=== PATIENT | female | born 1950 | race Caucasian/White ===

== ENCOUNTER 2016-08-29 11:39 | Inpatient (IN) | payer OTHER, MEDICAID ==
[2016-08-29] MEDS: NS 1000 ML 1,000 ML IV SCH (14:50)
[2016-08-29 14:53] LABS: BILIRUBIN,URINE NEGATIVE (NEGATIVE); BLOOD/HEMOGLOBIN,URINE NEGATIVE (NEGATIVE); GLUCOSE, URINE 3+ (NEGATIVE); KETONES,URINE NEGATIVE (NEGATIVE); LEUKOCYTE ESTERASE ,URINE NEGATIVE (NEGATIVE); NITRITES,URINE NEGATIVE (NEGATIVE); PROTEIN,URINE 2+ (NEGATIVE); UROBILINOGEN,URINE NORMAL (NORMAL)
[2016-08-29 14:58] VITALS: BMI 31.7
[2016-08-29 15:00] LABS: APPEARANCE,URINE CLEAR (CLEAR); COLOR,URINE YELLOW (YELLOW); RBC,URINE 0-2 /HPF (NEGATIVE)
[2016-08-29] MEDS: LEVAQUIN PREMIX IV 500 MG 500 MG/100 ML BAG IV SCH ×2 (15:00→15:16)
[2016-08-29 15:01] LABS: AMORPHOUS SEDIMENT,UR TRACE /HPF (NEGATIVE); BACTERIA,URINE 1+ /HPF (NEGATIVE); SQUAMOUS EPITHELIAL CELL,UR MANY /HPF (NEGATIVE)
[2016-08-29] MEDS: SOLU-Medrol 40 MG VIAL IVP SCH ×2 (15:16→21:15)
[2016-08-29 15:50] LABS: BASOPHILS % (AUTO) 0.7 % (0.2-1.0); EOSINOPHILS # (AUTO) 0.1 x10^3/uL (0.0-0.2); EOSINOPHILS % (AUTO) 1.8 % (0.9-2.9); HEMATOCRIT 46.1 % (36.0-47.0); HEMOGLOBIN 14.9 g/dL (12.0-16.0); LYMPHOCYTES # (AUTO) 2.2 X10^3/uL (1.3-2.9); LYMPHOCYTES % (AUTO) 37.6 % (21.0-51.0); MEAN CORPUSCULAR HEMOGLOBIN 29.5 pg (27.0-34.0); MEAN CORPUSCULAR HGB CONC 32.3 g/dL (33.0-35.0); MEAN CORPUSCULAR VOLUME 91.4 fL (80.0-100.0); MEAN PLATELET VOLUME 8.3 fL (7.4-11.0); MONOCYTES # (AUTO) 0.6 x10^3/uL (0.3-0.8); MONOCYTES % (AUTO) 9.5 % (0.0-13.0); NEUTROPHILS % (AUTO) 50.4 % (42.0-75.0); PLATELET COUNT 125 X10^3/uL (150.0-450.0); RED BLOOD COUNT 5.05 X10^6/uL (3.5-5.4); RED CELL DISTRIBUTION WIDTH 17.1 % (11.6-16.5); WHITE BLOOD COUNT 5.9 X10^3/uL (3.6-10.0)
[2016-08-29 16:02] LABS: ALANINE AMINOTRANSFERASE 41 Units/L (12-78); ALBUMIN 2.9 g/dL (3.4-5.0); ALKALINE PHOSPHATASE 126 Units/L (46-116); ASPARTATE AMINO TRANSFERASE 27 Units/L (15-37); BLOOD UREA NITROGEN 17 mg/dL (7-18); CALCIUM 8.7 mg/dL (8.5-10.1); CARBON DIOXIDE 35.8 mmol/L (21-32); CHLORIDE 105 mmol/L (98-107); COR CA(FOR HYPOALB) 9.6 mg/dL (8.5-10.1); COR NA(FOR HYPERGLY) 148 mmol/L (136-145); CREATININE 0.78 mg/dL (0.55-1.02); GLUCOSE 250 mg/dL (65-99); SODIUM 144 mmol/L (136-145); TOTAL PROTEIN 6.6 g/dL (6.4-8.2); eGFR BLACK RACES > 60 (>60); eGFR NON BLACK RACES > 60 (>60)
--- NOTE | 2016-08-29 16:52 | RAD ---
HISTORY: COPD exacerbation and bronchitis. Study: Chest one view Comparison: None. Findings: The trachea is midline. The cardiac silhouette is enlarged. There is an AICD in place. There is so me prominence of the central bronchial pulmonary markings in both lungs. There is no evidence of con solidation, significant effusion or pneumothorax. The bony thorax is unremarkable. IMPRESSION: 1. Cardiomegaly. 2. Chronic bronchitis versus reactive airway disease. Reported By:
[2016-08-29] MEDS: ZITHROMAX INJ 500 MG VIAL 500 MG in NS 250 ML IV 250 ML IV SCH (17:00)
[2016-08-29] MEDS: DUONEB 0.5 MG/3 MG NEB SCH (17:00)
[2016-08-29] MEDS: HumuLIN R SUBCUT PRN ×2 (18:03→21:21)
[2016-08-29] MEDS ORDERED: NORCO 10/325 TAB PO PRN (20:03)
[2016-08-30] MEDS ORDERED: PATIENT'S HOME MEDICATION (Alprazolam [Alprazolam] 1 TAB) PO PRN (00:31)
[2016-08-30] MEDS ORDERED: NORCO 10/325 TAB PO PRN (00:31)
[2016-08-30] MEDS ORDERED: METHOCARBAMOL PO PRN (00:31)
[2016-08-30] MEDS: COREG TAB 25 MG PO SCH ×4 (01:28→20:01)
[2016-08-30] MEDS: NS 1000 ML 1,000 ML IV SCH (03:55)
[2016-08-30] MEDS: SOLU-Medrol 40 MG VIAL IVP SCH (06:00)
[2016-08-30] MEDS ORDERED: PATIENT'S HOME MEDICATION (Dicyclomine Hcl [Dicyclomine Hcl] 1 TAB) PO SCH (06:00)
[2016-08-30] MEDS: HumuLIN R SUBCUT PRN ×4 (06:02→20:07)
[2016-08-30] MEDS: DUONEB 0.5 MG/3 MG NEB SCH ×5 (06:02→21:54)
[2016-08-30] MEDS ORDERED: BENTYL CAP 10 MG PO ONE (06:37)
[2016-08-30] MEDS ORDERED: XANAX PO PRN (06:49)
[2016-08-30] MEDS: BENTYL CAP 10 MG PO SCH ×3 (07:05→22:36)
[2016-08-30] MEDS: AMARYL TAB 4 MG PO SCH (07:19)
[2016-08-30] MEDS: NEURONTIN CAP 400 MG PO SCH ×2 (08:52→20:01)
[2016-08-30] MEDS: ARICEPT TAB 5 MG PO SCH (08:53)
[2016-08-30] MEDS: PriLOSEC PO SCH (08:53)
[2016-08-30] MEDS: SINEquan PO SCH ×3 (08:53→20:12)
[2016-08-30] MEDS: ZyrTEC TAB 10 MG PO SCH (08:53)
[2016-08-30] MEDS: NAPROSYN PO SCH ×2 (08:54→20:01)
[2016-08-30] MEDS: LEVAQUIN PREMIX IV 500 MG 500 MG/100 ML BAG IV SCH (08:55)
[2016-08-30] MEDS: ZITHROMAX INJ 500 MG VIAL 500 MG in NS 250 ML IV 250 ML IV SCH (08:56)
[2016-08-30] MEDS ORDERED: GLIMEPIRIDE PO SCH (09:00)
[2016-08-30] MEDS ORDERED: DOXEPIN HCL PO SCH (09:00)
[2016-08-30] MEDS: PATIENT'S HOME MEDICATION PO SCH (09:46)
[2016-08-30] MEDS: PLAVIX PO SCH (09:46)
--- NOTE | 2016-08-30 13:13 | DR.H&P ---
H&P - History & Physical for Day of: H&P Date: 08/29/16 - Chief Complaint Chief Complaint: cough, wheezing, left lower extremity pain - Allergies Allergies/Adverse Reactions: Allergies Allergy/AdvReac Type Severity Reaction Status Date / Time Sulfa Antibiotics AdvReac Verified 08/29/16 14:29 - History of Present Illness History of Present Illness: patient is a 66-year-old white female who was a direct admit from Dr. Patten's [place] office with COPD exacerbation. Patient had previously taken by mouth antibiotics and steroids prior to admission. Patient also had complaints of severe left knee and left hip pain. Patient states pain has gotten worse she has limited weightbearing to tolerance. Patient states she did have ultrasound at [facility] which was negative for a DVT. Plan to admit for respiratory therapy, IV antibiotics, admission labs and chest x-ray. And pain control. Plan to obtain copies of radiology reports from [facility] - Past Medical History Past Medical History: Arthritis, COPD, GERD, Hypertension - Past Surgical History Surgical History: Angioplasty/Stents, Cholecystectomy, Hysterectomy, Ortho Surgery, Tonsillectomy - Family History Family Medical History: Cancer, PA, Hypertension - Social History Does patient currently use any type of tobacco product: Yes Have you used tobacco products in the last 12 months: Yes Type of Tobacco Use: Cigarettes How many years tobacco product used: 40 Packs per day or dips/chews per day: 1 Does any household member use tobacco: No Alcohol Use: None Drug Use: None - Medications Home Medications: Alprazolam 1 tab PO BID PRN 08/29/16 [History Confirmed 08/30/16] Carvedilol [Coreg Tab 25 mg] 25 mg PO BID 08/29/16 [History Confirmed 08/30/16] Cetirizine HCl [Zyrtec Allergy] 1 tab PO DAILY 08/29/16 [History Confirmed 08/30] Clopidogrel Bisulfate [PLAVIX TAB 75 MG *] 1 tab PO DAILY 08/29/16 [History Confirmed 08/30/16] Dicyclomine HCl 1 tab PO QID 08/29/16 [History Confirmed 08/30/16] Donepezil Hydrochloride [ARICEPT TAB 5 MG *] 1 tab PO HS 08/29/16 [History Confirmed 08/30/16] Doxepin HCl 1 cap PO HS 08/29/16 [History Confirmed 08/30/16] Estradiol & Norethindrone Acet [Activella 0.5-0.1 mg] 1 tab PO DAILY 08/29/16 [ History Confirmed 08/30/16] Gabapentin 3 tab PO TID 08/29/16 [History Confirmed 08/30/16] Glimepiride [Glimepiride 2 mg] 1 tab PO DAILY 08/29/16 [History Confirmed ] Hydrocodone-Acetaminophen [Hydrocodone/Acetaminophen 10-325 mg] 1 tab PO Q4H PRN 08/29/16 [History Confirmed 08/30/16] Methocarbamol [Methocarbamol 500 mg] 2 tab PO TID 08/29/16 [History Confirmed ] Naproxen [NAPROSYN 500 MG *] 1 tab PO BID 08/29/16 [History Confirmed 08/30/16] Omeprazole [PRILOSEC 20 MG *] 2 tab PO DAILY 08/29/16 [History Confirmed ] - Review of Systems Eyes: No Symptoms Reported ENT: No Symptoms Reported Respiratory: Cough, Shortness of Breath, Wheezing Cardiovascular: No Symptoms Reported Gastrointestinal: No Symptoms Reported Genitourinary: No Symptoms Reported Musculoskeletal: Back Pain, Leg Pain Skin: No Symptoms Reported Neurological: No Symptoms Reported - Physical Exam Vital Signs: Temperature 97.9 F Pulse Rate [Right Brachial] 80 Pulse Rate 79 Respiratory Rate 18 Blood Pressure [Left Arm] 137/62 O2 Sat by Pulse Oximetry 90 Oriented: Normal Eyes: Normal Ear: Normal Nose: Normal Throat: Normal Respiratory: Wheezes Throughout Cardiovascular: Normal : Normal Auscultation: Bowel Sounds: Normal Palpation: Normal Tenderness: Normal Skin: Normal Musculoskeletal: Knee (LEFT KNEE MEDIAL AND LATERAL TENDERNESS, LIMITED ROM), Back:Thoracic, Back:Lumbar Psychiatric: Anxiety Speech Pattern: Clear, Appropriate - Assessment/Plan (1) Acute bronchitis with COPD Status: Acute Plan: ADMIT, IV ATBX, RESP THERAPY. ADMISSION LABS. RESUME HOME MEDS, BP CONTROL. BS CONTROL (2) Left knee pain Qualifiers: Chronicity: C Status: Acute Plan: PAIN CONTROL (3) Lumbar spinal stenosis Status: Acute (4) Diabetes mellitus, type II Qualifiers: Diabetes mellitus complication status: D Diabetes mellitus complication detail: D Diabetic retinopathy severity: D Proliferative retinopathy type: P Diabetes mellitus macular edema: D Diabetes mellitus skilled nursing insulin use : D Laterality: L Chronic kidney disease stage: C Status: Chronic (5) GERD (gastroesophageal reflux disease) Qualifiers: Esophagitis presence: E Status: Chronic
--- NOTE | 2016-08-30 13:22 | PCM.PROG ---
Progress Note - Progress Note for Day of Date: 08/30/16 - Subjective Subjective: CONTINUED WHEEZING, LEFT HIP AND LEFT KNEE PAIN - Past Medical Family Social History Past Med/Fam/Surg Hx: No changes since H&P Allergies: Allergies Sulfa Antibiotics Adverse Reaction (Verified 08/29/16 14:29) - Review of Systems ROS: No change since H&P - Vital Signs and I&O's Vital Signs: Temperature 97.9 F Pulse Rate [Right Brachial] 80 Pulse Rate 79 Respiratory Rate 18 Blood Pressure [Left Arm] 137/62 O2 Sat by Pulse Oximetry 90 Intake and Output: Intake & Output 08/28/16 08/29/16 08/30/16 08/31/16 11:59 11:59 11:59 11:59 Intake Total 1440 Output Total 0 Balance 1440 - Physical Exam Oriented: Normal Eyes: Normal Ear: Normal Nose: Normal Throat: Normal Respiratory: Diminished Cardiovascular: Normal : Normal Auscultation: Bowel Sounds: Normal Tenderness: Normal Skin: Normal Musculoskeletal: Knee (LEFT KNEE MEDIAL AND LATERAL TENDERNESS, LIMITED ROM), Back:Thoracic, Back:Lumbar Psychiatric: Anxiety Speech Pattern: Clear, Appropriate - Laboratory and Diagnostics Result Diagrams: 08/29/16 15:40 08/29/16 15:40 Labs: 08/29/16 14:36 Urine,Clean Catch Urine Culture - Preliminary 08/29/16 15:15 Sputum - Expectorated Sputum Sputum Culture - Preliminary 08/29/16 15:15 Sputum - Expectorated Sputum - Final Laboratory WBC 5.9 X10^3/uL (3.6-10.0) 08/29/16 15:40 RBC 5.05 X10^6/uL (3.5-5.4) 08/29/16 15:40 Hgb 14.9 g/dL (12.0-16.0) 08/29/16 15:40 Hct 46.1 % (36.0-47.0) 08/29/16 15:40 MCV 91.4 fL (80.0-100.0) 08/29/16 15:40 MCH 29.5 pg (27.0-34.0) 08/29/16 15:40 MCHC 32.3 g/dL (33.0-35.0) L 08/29/16 15:40 RDW 17.1 % (11.6-16.5) H 08/29/16 15:40 Plt Count 125 X10^3/uL (150.0-450.0) L 08/29/16 15:40 MPV 8.3 fL (7.4-11.0) 08/29/16 15:40 Neut % 50.4 % (42.0-75.0) 08/29/16 15:40 Lymph % 37.6 % (21.0-51.0) 08/29/16 15:40 [place]ulk % 9.5 % (0.0-13.0) 08/29/16 15:40 Eos % 1.8 % (0.9-2.9) 08/29/16 15:40 Baso % 0.7 % (0.2-1.0) 08/29/16 15:40 Neut # 3.0 x10^3/uL (2.2-4.8) 08/29/16 15:40 Lymph # 2.2 X10^3/uL (1.3-2.9) 08/29/16 15:40 Faulk # 0.6 x10^3/uL (0.3-0.8) 08/29/16 15:40 Eos # 0.1 x10^3/uL (0.0-0.2) 08/29/16 15:40 Baso # 0.0 X10^3/uL (0.0-0.1) 08/29/16 15:40 Absolute Nucleated RBC 0.1 /100WBC 08/29/16 15:40 Sodium 144 mmol/L (136-145) 08/29/16 15:40 Corrected Sodium 148 mmol/L (136-145) H 08/29/16 15:40 Potassium 4.4 mmol/L (3.5-5.1) 08/29/16 15:40 Chloride 105 mmol/L (98-107) 08/29/16 15:40 Carbon Dioxide 35.8 mmol/L (21-32) H 08/29/16 15:40 BUN 17 mg/dL (7-18) 08/29/16 15:40 Creatinine 0.78 mg/dL (0.55-1.02) 08/29/16 15:40 Est GFR (MDRD) Af Amer > 60 (>60) 08/29/16 15:40 Est GFR (MDRD) Non-Af > 60 (>60) 08/29/16 15:40 Glucose 250 mg/dL (65-99) H 08/29/16 15:40 Calcium 8.7 mg/dL (8.5-10.1) 08/29/16 15:40 Corrected Calcium 9.6 mg/dL (8.5-10.1) 08/29/16 15:40 Total Bilirubin 0.40 mg/dL (0.2-1.0) 08/29/16 15:40 AST 27 Units/L (15-37) 08/29/16 15:40 ALT 41 Units/L (12-78) 08/29/16 15:40 Alkaline Phosphatase 126 Units/L (46-116) H 08/29/16 15:40 Total Protein 6.6 g/dL (6.4-8.2) 08/29/16 15:40 Albumin 2.9 g/dL (3.4-5.0) L 08/29/16 15:40 Globulin 3.7 g/dL (2.5-4.5) 08/29/16 15:40 Albumin/Globulin Ratio 0.8 Ratio (1.1-2.1) L 08/29/16 15:40 Specimen Type Clean catch urine 08/29/16 14:36 Urine Color Yellow (YELLOW) 08/29/16 14:36 Urine Appearance Clear (CLEAR) 08/29/16 14:36 Urine pH 8.0 (5.0 - 8.0) 08/29/16 14:36 Ur Specific [place] 1.015 (1.000-1.030) 08/29/16 14:36 Urine Protein 2+ (NEGATIVE) 08/29/16 14:36 Urine Glucose (UA) 3+ (NEGATIVE) 08/29/16 14:36 Urine Ketones Negative (NEGATIVE) 08/29/16 14:36 Urine Occult Blood Negative (NEGATIVE) 08/29/16 14:36 Urine Nitrite Negative (NEGATIVE) 08/29/16 14:36 Urine Bilirubin Negative (NEGATIVE) 08/29/16 14:36 Urine Urobilinogen Normal (NORMAL) 08/29/16 14:36 Ur Leukocyte Esterase Negative (NEGATIVE) 08/29/16 14:36 Urine RBC 0-2 /HPF (NEGATIVE) 08/29/16 14:36 Urine WBC 0-1 /HPF (NEGATIVE) 08/29/16 14:36 Ur Squamous Epith Cells Many /HPF (NEGATIVE) 08/29/16 14:36 Amorphous Sediment Trace /HPF (NEGATIVE) 08/29/16 14:36 Urine Bacteria 1+ /HPF (NEGATIVE) 08/29/16 14:36 Ur Culture Indicated? Yes/culture set up 08/29/16 14:36 - Plan (1) Acute bronchitis with COPD Status: Acute Plan: CONTINUE IV ATBX, RESP THERAPY. REPEAT AM LABS. RESUME HOME MEDS, BP CONTROL. BS CONTROL (2) Left knee pain Status: Acute Qualifiers: Chronicity: C Plan: PAIN CONTROL. CT LEFT KNEE AND LUMBAR SPINE. OBTAIN RAD REPORTS FROM [facility] (3) Lumbar spinal stenosis Status: Acute (4) Diabetes mellitus, type II Status: Chronic Qualifiers: Diabetes mellitus complication status: D Diabetes mellitus complication detail: D Diabetic retinopathy severity: D Proliferative retinopathy type: P Diabetes mellitus macular edema: D Diabetes mellitus correction insulin use : D Laterality: L Chronic kidney disease stage: C Plan: BS AC/HS, SSI (5) GERD (gastroesophageal reflux disease) Status: Chronic Qualifiers: Esophagitis presence: E Plan: PPI
--- NOTE | 2016-08-30 15:30 | CT ---
HISTORY: Left hip pain Study: CT lumbar spine without contrast Comparison: None Technique: Multiple axial images of the lumbar spine without the administration of IV contrast. Sa gittal and coronal reformats were performed and reviewed. Dose reduction techniques including Autom ated Exposure Control (AEC) and adjustment of mA and kV were utilized. Findings: There is mild retrolisthesis of L2 on L3 and L3 on L4 with previous laminectomy changes also seen at these levels. There are broad-based disc bulge is seen at these levels, worse at L3-L4 causing mode rate to severe bilateral foraminal stenosis. There is mild bilateral foraminal stenosis at L2-L3 and L4-5. Multilevel facet arthropathy is also present. The surrounding paraspinal soft tissues demonst rate extensive atherosclerotic disease of the aorta and branch vessels and post cholecystectomy rome ges in the right upper quadrant. There is extensive sigmoid diverticulosis in a there is thickening of the bowel wall seen without surrounding inflammatory changes that could reflect chronic sequela o f diverticulitis versus low-grade inflammation. There is a low-density left adrenal nodule compatibl e with an adenoma. IMPRESSION: 1. Multilevel lumbar disc disease and facet arthropathy with moderate to severe bilateral foraminal stenosis at L3-L4 and mild bilateral foraminal narrowing at L2-L3 and L4-5. 2. Post-laminectomy changes at L2-L3 and L3-L4. 3. Sigmoid diverticulosis with diffuse bowel wall thickening that could reflect sequela of previous diverticulitis versus ongoing low grade inflammation, correlate clinically. 4. Left adrenal adenoma. Reported By:
--- NOTE | 2016-08-30 15:33 | CT ---
HISTORY: Left knee pain Study: CT of the left knee without contrast Comparison: None Technique: Multiple axial images were obtained without administration of IV contrast. Sagittal and coronal reformats were performed and reviewed. Dose reduction techniques including Automated Exposur e Control (AEC) and adjustment of mA and kV were utilized. Findings: Mild to moderate tricompartmental osteoarthritic changes are seen. There is joint space narrowing in the medial compartment. No evidence of fracture, dislocation or joint effusion. No evidence of loos e body or articular surface erosions. There is a small García cyst noted. IMPRESSION: 1. Osteoarthritic changes most prominent in the medial compartment. 2. Small García's cyst. Reported By:
[2016-08-30] MEDS ORDERED: SNACK - Diabetic Appropriate PO SCH (20:00)
[2016-08-30] MEDS ORDERED: CARAFATE PO PRN (23:56)
[2016-08-31] MEDS: NS 1000 ML 1,000 ML IV SCH (04:04)
[2016-08-31] MEDS: BENTYL CAP 10 MG PO SCH (05:40)
[2016-08-31] MEDS: HumuLIN R SUBCUT PRN (05:41)
[2016-08-31 06:39] LABS: BASOPHILS % (AUTO) 0.2 % (0.2-1.0); EOSINOPHILS % (AUTO) 0.1 % (0.9-2.9); HEMATOCRIT 46.1 % (36.0-47.0); HEMOGLOBIN 14.6 g/dL (12.0-16.0); LYMPHOCYTES % (AUTO) 21.9 % (21.0-51.0); MEAN CORPUSCULAR HEMOGLOBIN 29.2 pg (27.0-34.0); MEAN CORPUSCULAR HGB CONC 31.7 g/dL (33.0-35.0); MEAN CORPUSCULAR VOLUME 92.2 fL (80.0-100.0); MEAN PLATELET VOLUME 8.8 fL (7.4-11.0); MONOCYTES # (AUTO) 0.7 x10^3/uL (0.3-0.8); MONOCYTES % (AUTO) 8.1 % (0.0-13.0); NEUTROPHILS # (AUTO) 6.3 x10^3/uL (2.2-4.8); NEUTROPHILS % (AUTO) 69.7 % (42.0-75.0); PLATELET COUNT 123 X10^3/uL (150.0-450.0); RED CELL DISTRIBUTION WIDTH 17.1 % (11.6-16.5); WHITE BLOOD COUNT 9.1 X10^3/uL (3.6-10.0)
[2016-08-31 06:57] LABS: ALANINE AMINOTRANSFERASE 38 Units/L (12-78); ALBUMIN 2.9 g/dL (3.4-5.0); ALKALINE PHOSPHATASE 105 Units/L (46-116); ASPARTATE AMINO TRANSFERASE 26 Units/L (15-37); BLOOD UREA NITROGEN 18 mg/dL (7-18); CALCIUM 8.8 mg/dL (8.5-10.1); CARBON DIOXIDE 31.6 mmol/L (21-32); CHLORIDE 104 mmol/L (98-107); COR CA(FOR HYPOALB) 9.7 mg/dL (8.5-10.1); COR NA(FOR HYPERGLY) 144 mmol/L (136-145); CREATININE 0.71 mg/dL (0.55-1.02); GLUCOSE 175 mg/dL (65-99); SODIUM 142 mmol/L (136-145); TOTAL PROTEIN 6.5 g/dL (6.4-8.2); eGFR BLACK RACES > 60 (>60); eGFR NON BLACK RACES > 60 (>60)
[2016-08-31 07:57] VITALS: BP 136/65
[2016-08-31] MEDS: PLAVIX PO SCH (08:40)
[2016-08-31] MEDS: NEURONTIN CAP 400 MG PO SCH (08:40)
[2016-08-31] MEDS: SINEquan PO SCH ×2 (08:40→09:11)
[2016-08-31] MEDS: ZyrTEC TAB 10 MG PO SCH (08:40)
[2016-08-31] MEDS: ARICEPT TAB 5 MG PO SCH (08:40)
[2016-08-31] MEDS: PriLOSEC PO SCH (08:40)
[2016-08-31] MEDS: ZITHROMAX INJ 500 MG VIAL 500 MG in NS 250 ML IV 250 ML IV SCH (08:41)
[2016-08-31] MEDS: COREG TAB 25 MG PO SCH (08:41)
[2016-08-31] MEDS: AMARYL TAB 4 MG PO SCH (08:41)
[2016-08-31] MEDS: LEVAQUIN PREMIX IV 500 MG 500 MG/100 ML BAG IV SCH (08:41)
[2016-08-31] MEDS: DUONEB 0.5 MG/3 MG NEB SCH ×2 (09:01→12:01)
[2016-08-31] MEDS: PATIENT'S HOME MEDICATION PO SCH (09:10)
[2016-08-31] MEDS: NAPROSYN PO SCH (09:11)
[2016-08-31] MEDS ORDERED: SINEquan PO SCH (21:00)
== END 2016-08-31 13:30 | disposition home or self-care (01) | DRG 202 ==
LOC: OBS 11:39
PROVIDERS: ADMIT Internal Medicine; ATTEND Internal Medicine
DX: J20.8 Acute bronchitis due to other specified organisms (principal); J44.1 Chronic obstructive pulmonary disease with (acute) exacerbation; J44.0 Chronic obstructive pulmonary disease with (acute) lower respiratory infection; M25.552 Pain in left hip; M13.89 Other specified arthritis, multiple sites; M25.562 Pain in left knee; M48.06 Spinal stenosis, lumbar region; I10 Essential (primary) hypertension; K21.9 Gastro-esophageal reflux disease without esophagitis; R06.02 Shortness of breath
CPT/HCPCS: 36415; 71010; 72131; 73700; 80053; 81001; 85025; 87070; 87086; 87088; 87186; 87205; 94640; 94760; A4216; A4222; G0378; J0456; J1815; J1956; J2920; J7620

== ENCOUNTER 2016-12-24 20:45 | Inpatient (IN) | payer OTHER, MEDICAID ==
[2016-12-24] MEDS ORDERED: PULMICORT NEB TX 0.5 MG NEB ONE (22:05)
[2016-12-24] MEDS ORDERED: DUONEB 0.5 MG/3 MG ONE (22:05)
[2016-12-24] MEDS: DUONEB 0.5 MG/3 MG NEB SCH (22:11)
[2016-12-24] MEDS: PULMICORT NEB TX 0.5 MG NEB SCH (22:11)
[2016-12-24 22:28] LABS: BASOPHILS % (AUTO) 0.3 % (0.2-1.0); EOSINOPHILS # (AUTO) 0.1 x10^3/uL (0.0-0.2); HEMATOCRIT 46.3 % (36.0-47.0); LYMPHOCYTES # (AUTO) 1.5 X10^3/uL (1.3-2.9); LYMPHOCYTES % (AUTO) 28.4 % (21.0-51.0); MEAN CORPUSCULAR HEMOGLOBIN 28.2 pg (27.0-34.0); MEAN CORPUSCULAR HGB CONC 32.5 g/dL (33.0-35.0); MEAN CORPUSCULAR VOLUME 86.8 fL (80.0-100.0); MONOCYTES # (AUTO) 0.5 x10^3/uL (0.3-0.8); MONOCYTES % (AUTO) 9.6 % (0.0-13.0); NEUTROPHILS # (AUTO) 3.2 x10^3/uL (2.2-4.8); NEUTROPHILS % (AUTO) 60.7 % (42.0-75.0); PLATELET COUNT 142 X10^3/uL (150.0-450.0); RED BLOOD COUNT 5.33 X10^6/uL (3.5-5.4); RED CELL DISTRIBUTION WIDTH 18.6 % (11.6-16.5); WHITE BLOOD COUNT 5.3 X10^3/uL (3.6-10.0)
[2016-12-24 22:48] LABS: ALANINE AMINOTRANSFERASE 23 Units/L (12-78); ALKALINE PHOSPHATASE 113 Units/L (46-116); ASPARTATE AMINO TRANSFERASE 20 Units/L (15-37); BLOOD UREA NITROGEN 11 mg/dL (7-18); CALCIUM 9.2 mg/dL (8.5-10.1); CHLORIDE 99 mmol/L (98-107); CKMB % 2.8 % (<4); COR NA(FOR HYPERGLY) 145 mmol/L (136-145); CREATINE KINASE 36 Units/L (26-192); CREATINE KINASE MB < 1.0 ng/mL (0-4.0); CREATININE 0.81 mg/dL (0.55-1.02); SODIUM 141 mmol/L (136-145); TROPONIN I 0.24 ng/mL (0-1.5); eGFR BLACK RACES > 60 (>60); eGFR NON BLACK RACES > 60 (>60)
[2016-12-24] MEDS ORDERED: ROCEPHIN VIAL 1 GM ONE (23:00)
[2016-12-24] MEDS ORDERED: NS 50 ML IV 50 ML IV ONE (23:00)
[2016-12-24] MEDS ORDERED: NS 500 ML IV 500 ML IV ONE (23:01)
[2016-12-24] MEDS: ROCEPHIN VIAL 1 GM 1 GM in NS 50 ML IV + SPIKE MINIBAG* 50 ML IV SCH (23:09)
[2016-12-24] MEDS: ZITHROMAX INJ 500 MG VIAL 500 MG in NS 250 ML IV 250 ML IV SCH (23:12)
[2016-12-24] MEDS: SOLU-Medrol 40 MG VIAL IVP SCH (23:12)
[2016-12-24] MEDS: NS 500 ML IV 500 ML IV SCH (23:23)
[2016-12-24 23:41] VITALS: BMI 29.5
[2016-12-25] MEDS: HumuLIN R SUBCUT PRN ×5 (00:03→21:58)
[2016-12-25] MEDS: DUONEB 0.5 MG/3 MG NEB SCH ×4 (00:38→17:32)
[2016-12-25 05:19] LABS: BASOPHILS % (AUTO) 0.3 % (0.2-1.0); EOSINOPHILS % (AUTO) 0.2 % (0.9-2.9); HEMATOCRIT 45.6 % (36.0-47.0); HEMOGLOBIN 14.6 g/dL (12.0-16.0); LYMPHOCYTES # (AUTO) 0.7 X10^3/uL (1.3-2.9); LYMPHOCYTES % (AUTO) 18.1 % (21.0-51.0); MEAN CORPUSCULAR HGB CONC 32.1 g/dL (33.0-35.0); MEAN CORPUSCULAR VOLUME 87.2 fL (80.0-100.0); MEAN PLATELET VOLUME 8.6 fL (7.4-11.0); MONOCYTES # (AUTO) 0.1 x10^3/uL (0.3-0.8); MONOCYTES % (AUTO) 2.2 % (0.0-13.0); NEUTROPHILS # (AUTO) 3.3 x10^3/uL (2.2-4.8); NEUTROPHILS % (AUTO) 79.2 % (42.0-75.0); PLATELET COUNT 140 X10^3/uL (150.0-450.0); RED BLOOD COUNT 5.23 X10^6/uL (3.5-5.4); RED CELL DISTRIBUTION WIDTH 18.2 % (11.6-16.5); WHITE BLOOD COUNT 4.1 X10^3/uL (3.6-10.0)
[2016-12-25 05:31] LABS: ALANINE AMINOTRANSFERASE 22 Units/L (12-78); ALBUMIN 2.9 g/dL (3.4-5.0); ALKALINE PHOSPHATASE 115 Units/L (46-116); ASPARTATE AMINO TRANSFERASE 22 Units/L (15-37); BLOOD UREA NITROGEN 15 mg/dL (7-18); CALCIUM 9.1 mg/dL (8.5-10.1); CARBON DIOXIDE 37.4 mmol/L (21-32); CHLORIDE 100 mmol/L (98-107); CHOL/HDL RATIO 3.3 (0.0-5.0); CHOLESTEROL 130 mg/dL (0-200); CKMB % 3.2 % (<4); COR NA(FOR HYPERGLY) 146 mmol/L (136-145); CREATINE KINASE 31 Units/L (26-192); CREATINE KINASE MB < 1.0 ng/mL (0-4.0); CREATININE 0.92 mg/dL (0.55-1.02); HDL CHOLESTEROL 39 mg/dL (40-60); MAGNESIUM 1.7 mg/dL (1.7-2.9); SODIUM 142 mmol/L (136-145); TOTAL PROTEIN 6.9 g/dL (6.4-8.2); TRIGLYCERIDES 156 mg/dL (0-150); TROPONIN I 0.16 ng/mL (0-1.5); eGFR BLACK RACES > 60 (>60); eGFR NON BLACK RACES > 60 (>60)
[2016-12-25] MEDS: SOLU-Medrol 40 MG VIAL IVP SCH ×3 (05:41→21:37)
--- NOTE | 2016-12-25 07:29 | RAD ---
HISTORY: Shortness of breath Study: Chest PA and lateral Comparison: August 29, 2016 Findings: Patient is rotated slightly to the right. The patient is status post median sternotomy and CABG. Ther e is a pacemaker present on the left. The heart is enlarged. No congestive heart failure is noted. No acute alveolar infiltrates or pleural effusions are identified. Calcified lymph nodes are present in the [place] consistent with old granulomatous disease no pleural effusions are identified. IMPRESSION: No acute infiltrates Cardiomegaly without congestive heart failure Old granulomatous disease Reported By:
[2016-12-25] MEDS: PULMICORT NEB TX 0.5 MG NEB SCH ×2 (09:41→20:34)
[2016-12-25] MEDS ORDERED: NORETHINDRONE PO SCH (11:30)
[2016-12-25] MEDS ORDERED: ESTRADIOL PO SCH (11:30)
[2016-12-25] MEDS ORDERED: [UNRECOGNIZED DRUG - OTHER] PO SCH (11:30)
[2016-12-25] MEDS ORDERED: [UNRECOGNIZED DRUG - REMARK] PO SCH (11:30)
[2016-12-25] MEDS ORDERED: GUAIFENESIN PO SCH (11:30)
[2016-12-25 12:04] LABS: BILIRUBIN,URINE NEGATIVE (NEGATIVE); BLOOD/HEMOGLOBIN,URINE NEGATIVE (NEGATIVE); GLUCOSE, URINE 4+ (NEGATIVE); KETONES,URINE NEGATIVE (NEGATIVE); LEUKOCYTE ESTERASE ,URINE 1+ (NEGATIVE); NITRITES,URINE NEGATIVE (NEGATIVE); PROTEIN,URINE 3+ (NEGATIVE); UROBILINOGEN,URINE 1+ (NORMAL)
[2016-12-25 12:11] LABS: APPEARANCE,URINE SLIGHTLY HAZY (CLEAR); BACTERIA,URINE TRACE /HPF (NEGATIVE); COLOR,URINE DARK YELLOW (YELLOW); HYALINE CASTS, URINE FEW /LPF (NEGATIVE); RBC,URINE 0-1 /HPF (NEGATIVE); SQUAMOUS EPITHELIAL CELL,UR FEW /HPF (NEGATIVE)
[2016-12-25] MEDS ORDERED: ZESTRIL TAB 20 MG ONE (12:20)
[2016-12-25] MEDS: COREG TAB 25 MG PO SCH ×2 (12:34→21:40)
[2016-12-25] MEDS: GLUCOTROL PO SCH ×2 (12:34→21:40)
[2016-12-25] MEDS: PLAVIX PO SCH (12:35)
[2016-12-25] MEDS: ZESTRIL TAB 20 MG PO SCH (12:35)
[2016-12-25] MEDS: PROTONIX INJ 40 MG VIAL IVP SCH (12:35)
--- NOTE | 2016-12-25 12:56 | DR.H&P ---
H&P - History & Physical for Day of: H&P Date: 12/24/16 - Chief Complaint Chief Complaint: cp, sob - Allergies Allergies/Adverse Reactions: Allergies Allergy/AdvReac Type Severity Reaction Status Date / Time Sulfa (Sulfonamide AdvReac Verified 12/24/16 21:50 Antibiotics) [SULFA] - History of Present Illness History of Present Illness: patient is a 66-year-old white female who has a history of COPD and emphysema as well as coronary artery disease. She was admitted last night as a direct admit per Dr. Patten with COPD exacerbation as well as chest pain. Patient to receive respiratory therapy management of respiratory illness and discuss possible transfer. If chest pain continues. Patient states she was recently discharged from [facility] where she was admitted with chest pain and shortness of breath. Patient states she had stress test approximately 2-3 weeks ago. Patient denies any fever nausea vomiting or diarrhea. 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 - Past Medical History Past Medical History: Arthritis, COPD, GERD, Hypertension - Past Surgical History Surgical History: Angioplasty/Stents, Cholecystectomy, Hysterectomy, Ortho Surgery, Tonsillectomy - Family History Family Medical History: Cancer, CT, Hypertension - Social History Does patient currently use any type of tobacco product: Yes Have you used tobacco products in the last 12 months: Yes Type of Tobacco Use: Cigarettes Alcohol Use: None Drug Use: None - Medications Home Medications: Fluconazole [Diflucan] 100 mg PO PRN PRN 12/24/16 [History Confirmed 12/24/16] Glipizide [GLUCOTROL 5 MG *] 1 tab PO BID 12/24/16 [History Confirmed 12/24/16] Guaifenesin [Mucus Relief] 1 tab PO DAILY 12/24/16 [History Confirmed 12/24/16] Lisinopril [ZESTRIL *] 1 tab PO DAILY 12/24/16 [History Confirmed 12/24/16] - Review of Systems Constitutional: Weakness Eyes: No Symptoms Reported ENT: No Symptoms Reported Respiratory: Cough, Shortness of Breath, Wheezing Cardiovascular: Chest Pain Gastrointestinal: No Symptoms Reported Genitourinary: No Symptoms Reported Musculoskeletal: No Symptoms Reported Skin: No Symptoms Reported Neurological: Weakness - Physical Exam Vital Signs: Temperature 98.0 F Pulse Rate [Left Radial] 95 Pulse Rate 80 Respiratory Rate 20 Blood Pressure [Left Arm] 184/78 Blood Pressure 136/65 O2 Sat by Pulse Oximetry 100 Oriented: Normal Eyes: Normal Ear: Normal Nose: Normal Throat: Normal Respiratory: Wheezes Throughout, LLL Diminished Cardiovascular: Edema, Other (pacer, defibrillator) Auscultation: Bowel Sounds: Normal Palpation: Normal Tenderness: Normal Skin: Decreased Turgur Musculoskeletal: Back:Lumbar Psychiatric: Anxiety Speech Pattern: Clear, Appropriate - Assessment/Plan (1) Acute bronchitis with COPD Status: Acute Plan: admit, resp consult, resp jet nebs, supplemental o2, iv steroids. iv atbx , sputum. cardiac monitoring, bp and lipid control. ssi for blood sugar control (2) Chest pain Status: Acute (3) CAD (coronary artery disease) Status: Acute (4) Diabetes mellitus, type II Status: Chronic (5) GERD (gastroesophageal reflux disease) Status: Chronic
--- NOTE | 2016-12-25 13:07 | PCM.PROG ---
Progress Note - Progress Note for Day of Date: 12/25/16 - Subjective Subjective: 66-year-old white female admitted 1 day ago with chest pain and shortness of breath. Patient currently being treated for COPD exacerbation as well as serial cardiac enzymes and EKGs. Discussed possible transfer for heart Catheterization if chest pain continues with treatment of respiratory illness. Patient has complaints of chronic low back pain this a.m. - Past Medical Family Social History Past Med/Fam/Surg Hx: No changes since H&P Allergies: Allergies Sulfa (Sulfonamide Antibiotics) [SULFA] Adverse Reaction (Verified 12/24/16 21: 50) - Review of Systems ROS: No change since H&P - Vital Signs and I&O's Vital Signs: Temperature 98.0 F Pulse Rate [Left Radial] 95 Pulse Rate 80 Respiratory Rate 20 Blood Pressure [Left Arm] 184/78 Blood Pressure 136/65 O2 Sat by Pulse Oximetry 100 Intake and Output: Intake & Output 12/23/16 12/24/16 12/25/16 12/26/16 11:59 11:59 11:59 11:59 Intake Total 60 Output Total 225 Balance -165 - Physical Exam Oriented: Normal Eyes: Normal Ear: Normal Nose: Normal Throat: Normal Cardiovascular: Edema, Other (pacer, defibrillator) Auscultation: Bowel Sounds: Normal Tenderness: Normal Skin: Decreased Turgur Musculoskeletal: Back:Lumbar Psychiatric: Anxiety Speech Pattern: Clear, Appropriate - Laboratory and Diagnostics Result Diagrams: 12/25/16 04:30 12/25/16 04:30 Labs: Laboratory WBC 4.1 X10^3/uL (3.6-10.0) 12/25/16 04:30 RBC 5.23 X10^6/uL (3.5-5.4) 12/25/16 04:30 Hgb 14.6 g/dL (12.0-16.0) 12/25/16 04:30 Hct 45.6 % (36.0-47.0) 12/25/16 04:30 MCV 87.2 fL (80.0-100.0) 12/25/16 04:30 MCH 28.0 pg (27.0-34.0) 12/25/16 04:30 MCHC 32.1 g/dL (33.0-35.0) L 12/25/16 04:30 RDW 18.2 % (11.6-16.5) H 12/25/16 04:30 Plt Count 140 X10^3/uL (150.0-450.0) L 12/25/16 04:30 MPV 8.6 fL (7.4-11.0) 12/25/16 04:30 Neut % 79.2 % (42.0-75.0) H 12/25/16 04:30 Lymph % 18.1 % (21.0-51.0) L 12/25/16 04:30 [place] % 2.2 % (0.0-13.0) 12/25/16 04:30 Eos % 0.2 % (0.9-2.9) L 12/25/16 04:30 Baso % 0.3 % (0.2-1.0) 12/25/16 04:30 Neut # 3.3 x10^3/uL (2.2-4.8) 12/25/16 04:30 Lymph # 0.7 X10^3/uL (1.3-2.9) L 12/25/16 04:30 [place] # 0.1 x10^3/uL (0.3-0.8) L 12/25/16 04:30 Eos # 0.0 x10^3/uL (0.0-0.2) 12/25/16 04:30 Baso # 0.0 X10^3/uL (0.0-0.1) 12/25/16 04:30 Absolute Nucleated RBC 0.1 /100WBC 12/25/16 04:30 Sodium 142 mmol/L (136-145) 12/25/16 04:30 Corrected Sodium 146 mmol/L (136-145) H 12/25/16 04:30 Potassium 4.4 mmol/L (3.5-5.1) 12/25/16 04:30 Chloride 100 mmol/L (98-107) 12/25/16 04:30 Carbon Dioxide 37.4 mmol/L (21-32) H 12/25/16 04:30 BUN 15 mg/dL (7-18) 12/25/16 04:30 Creatinine 0.92 mg/dL (0.55-1.02) 12/25/16 04:30 Est GFR (MDRD) Af Amer > 60 (>60) 12/25/16 04:30 Est GFR (MDRD) Non-Af > 60 (>60) 12/25/16 04:30 Glucose 267 mg/dL (65-99) H 12/25/16 04:30 POC Glucose (mg/dL) 349 mg/dL (65-99) H 12/25/16 11:44 Calcium 9.1 mg/dL (8.5-10.1) 12/25/16 04:30 Corrected Calcium 10.0 mg/dL (8.5-10.1) 12/25/16 04:30 Magnesium 1.7 mg/dL (1.7-2.9) 12/25/16 04:30 Total Bilirubin 0.30 mg/dL (0.2-1.0) 12/25/16 04:30 AST 22 Units/L (15-37) 12/25/16 04:30 ALT 22 Units/L (12-78) 12/25/16 04:30 Alkaline Phosphatase 115 Units/L (46-116) 12/25/16 04:30 Creatine Kinase 31 Units/L (26-192) 12/25/16 04:30 CK-MB (CK-2) < 1.0 ng/mL (0-4.0) 12/25/16 04:30 CK/CKMB % Calc 3.2 % (<4) 12/25/16 04:30 Troponin I 0.16 ng/mL (0-1.5) 12/25/16 04:30 Total Protein 6.9 g/dL (6.4-8.2) 12/25/16 04:30 Albumin 2.9 g/dL (3.4-5.0) L 12/25/16 04:30 Globulin 4.0 g/dL (2.5-4.5) 12/25/16 04:30 Albumin/Globulin Ratio 0.7 Ratio (1.1-2.1) L 12/25/16 04:30 Triglycerides 156 mg/dL (0-150) H 12/25/16 04:30 Cholesterol 130 mg/dL (0-200) 12/25/16 04:30 LDL Cholesterol, Calc 60 mg/dL (0-100) 12/25/16 04:30 HDL Cholesterol 39 mg/dL (40-60) L 12/25/16 04:30 Cholesterol/HDL Ratio 3.3 (0.0-5.0) 12/25/16 04:30 Specimen Type Clean catch urine 12/25/16 11:41 Urine Color Dark yellow (YELLOW) 12/25/16 11:41 Urine Appearance Slightly hazy (CLEAR) 12/25/16 11:41 Urine pH 7.0 (5.0 - 8.0) 12/25/16 11:41 Ur Specific [place] 1.010 (1.000-1.030) 12/25/16 11:41 Urine Protein 3+ (NEGATIVE) 12/25/16 11:41 Urine Glucose (UA) 4+ (NEGATIVE) 12/25/16 11:41 Urine Ketones Negative (NEGATIVE) 12/25/16 11:41 Urine Occult Blood Negative (NEGATIVE) 12/25/16 11:41 Urine Nitrite Negative (NEGATIVE) 12/25/16 11:41 Urine Bilirubin Negative (NEGATIVE) 12/25/16 11:41 Urine Urobilinogen 1+ (NORMAL) 12/25/16 11:41 Ur Leukocyte Esterase 1+ (NEGATIVE) 12/25/16 11:41 Urine RBC 0-1 /HPF (NEGATIVE) 12/25/16 11:41 Urine WBC 2-5 /HPF (NEGATIVE) 12/25/16 11:41 Ur Squamous Epith Cells Few /HPF (NEGATIVE) 12/25/16 11:41 Urine Bacteria Trace /HPF (NEGATIVE) 12/25/16 11:41 Hyaline Casts Few /LPF (NEGATIVE) 12/25/16 11:41 Ur Culture Indicated? Yes/culture set up 12/25/16 11:41 - Plan (1) Acute bronchitis with COPD Status: Acute Plan: resp consult, resp jet nebs, supplemental o2, iv steroids. iv atbx, sputum. cardiac monitoring, bp and lipid control. ssi for blood sugar control (2) Chest pain Status: Acute (3) CAD (coronary artery disease) Status: Acute (4) Diabetes mellitus, type II Status: Chronic (5) GERD (gastroesophageal reflux disease) Status: Chronic
[2016-12-25] MEDS: NEURONTIN CAP 400 MG PO SCH ×2 (14:33→21:40)
[2016-12-25 15:28] LABS: CKMB % 2.9 % (<4); CREATINE KINASE 35 Units/L (26-192); CREATINE KINASE MB < 1.0 ng/mL (0-4.0); TROPONIN I 0.09 ng/mL (0-1.5)
[2016-12-25] MEDS: NORCO 10/325 TAB PO PRN (19:14)
[2016-12-25] MEDS ORDERED: PATIENT'S HOME MEDICATION (Alprazolam [Alprazolam] 1 TAB) PO SCH (21:00)
[2016-12-25] MEDS ORDERED: DOXEPIN HCL PO SCH (21:00)
[2016-12-25] MEDS ORDERED: NS 50 ML IV 0 ML IV ONE (21:10)
[2016-12-25] MEDS ORDERED: ROCEPHIN VIAL 1 GM ONE (21:11)
[2016-12-25] MEDS ORDERED: NS 100 ML IV + SPIKE MINIBAG* 100 ML IV ONE (21:16)
[2016-12-25] MEDS: ROCEPHIN VIAL 1 GM 1 GM in NS 50 ML IV + SPIKE MINIBAG* 50 ML IV SCH (21:36)
[2016-12-25] MEDS: ZITHROMAX INJ 500 MG VIAL 500 MG in NS 250 ML IV 250 ML IV SCH (21:38)
[2016-12-25] MEDS: XANAX PO SCH (21:39)
[2016-12-25] MEDS: SINEquan PO SCH (21:39)
[2016-12-25] MEDS: ARICEPT TAB 5 MG PO SCH (21:40)
[2016-12-25] MEDS: SNACK - Diabetic Appropriate PO SCH (22:56)
[2016-12-26] MEDS: DUONEB 0.5 MG/3 MG NEB SCH ×4 (00:45→17:52)
[2016-12-26] MEDS: NEURONTIN CAP 400 MG PO SCH ×3 (05:38→21:18)
[2016-12-26 05:39] LABS: ALANINE AMINOTRANSFERASE 21 Units/L (12-78); ALBUMIN 2.8 g/dL (3.4-5.0); ALKALINE PHOSPHATASE 94 Units/L (46-116); ASPARTATE AMINO TRANSFERASE 16 Units/L (15-37); BLOOD UREA NITROGEN 18 mg/dL (7-18); CALCIUM 9.2 mg/dL (8.5-10.1); CARBON DIOXIDE 37.6 mmol/L (21-32); CHLORIDE 102 mmol/L (98-107); COR CA(FOR HYPOALB) 10.2 mg/dL (8.5-10.1); COR NA(FOR HYPERGLY) 144 mmol/L (136-145); CREATININE 0.71 mg/dL (0.55-1.02); SODIUM 140 mmol/L (136-145); TOTAL PROTEIN 6.7 g/dL (6.4-8.2); eGFR BLACK RACES > 60 (>60); eGFR NON BLACK RACES > 60 (>60)
[2016-12-26] MEDS: HumuLIN R SUBCUT PRN ×4 (05:39→22:00)
[2016-12-26 05:47] LABS: BASOPHILS % (AUTO) 0.1 % (0.2-1.0); HEMATOCRIT 43.6 % (36.0-47.0); LYMPHOCYTES # (AUTO) 0.7 X10^3/uL (1.3-2.9); LYMPHOCYTES % (AUTO) 8.6 % (21.0-51.0); MEAN CORPUSCULAR HEMOGLOBIN 28.4 pg (27.0-34.0); MEAN CORPUSCULAR HGB CONC 32.1 g/dL (33.0-35.0); MEAN CORPUSCULAR VOLUME 88.5 fL (80.0-100.0); MEAN PLATELET VOLUME 8.5 fL (7.4-11.0); MONOCYTES # (AUTO) 0.3 x10^3/uL (0.3-0.8); MONOCYTES % (AUTO) 4.2 % (0.0-13.0); NEUTROPHILS # (AUTO) 6.8 x10^3/uL (2.2-4.8); NEUTROPHILS % (AUTO) 87.1 % (42.0-75.0); PLATELET COUNT 138 X10^3/uL (150.0-450.0); RED BLOOD COUNT 4.92 X10^6/uL (3.5-5.4); RED CELL DISTRIBUTION WIDTH 18.1 % (11.6-16.5); WHITE BLOOD COUNT 7.8 X10^3/uL (3.6-10.0)
[2016-12-26] MEDS ORDERED: ZESTRIL TAB 20 MG ONE (08:39)
[2016-12-26] MEDS: GLUCOTROL PO SCH ×2 (09:10→21:35)
[2016-12-26] MEDS: ZyrTEC TAB 10 MG PO SCH (09:10)
[2016-12-26] MEDS: COREG TAB 25 MG PO SCH ×2 (09:10→21:19)
[2016-12-26] MEDS: ZESTRIL TAB 20 MG PO SCH (09:10)
[2016-12-26] MEDS: ESTRACE PO SCH (09:11)
[2016-12-26] MEDS: PLAVIX PO SCH (09:11)
[2016-12-26] MEDS: MUCINEX EXPECTORANT PO SCH (09:11)
[2016-12-26] MEDS: SOLU-Medrol 40 MG VIAL IVP SCH ×2 (09:12→21:20)
[2016-12-26] MEDS: PROTONIX INJ 40 MG VIAL IVP SCH (09:12)
[2016-12-26] MEDS: METHOCARBAMOL PO PRN (09:20)
[2016-12-26] MEDS: PULMICORT NEB TX 0.5 MG NEB SCH ×2 (09:44→20:15)
[2016-12-26] MEDS: NORCO 10/325 TAB PO PRN (15:37)
[2016-12-26] MEDS ORDERED: COLACE CAP 100 MG PO PRN (20:36)
[2016-12-26] MEDS ORDERED: MILK OF MAGNESIA PO PRN (20:38)
[2016-12-26] MEDS: XANAX PO SCH (21:17)
[2016-12-26] MEDS: ARICEPT TAB 5 MG PO SCH (21:18)
[2016-12-26] MEDS: SINEquan PO SCH (21:18)
[2016-12-26] MEDS: SNACK - Diabetic Appropriate PO SCH (21:20)
[2016-12-26] MEDS: ZITHROMAX INJ 500 MG VIAL 500 MG in NS 250 ML IV 250 ML IV SCH (21:22)
[2016-12-26] MEDS: ROCEPHIN VIAL 1 GM 1 GM in NS 50 ML IV 50 ML IV SCH (21:23)
[2016-12-27] MEDS: DUONEB 0.5 MG/3 MG NEB SCH ×3 (00:08→11:34)
[2016-12-27] MEDS: NS 500 ML IV 500 ML IV SCH (04:20)
[2016-12-27] MEDS: NEURONTIN CAP 400 MG PO SCH ×4 (06:07→21:18)
[2016-12-27] MEDS: HumuLIN R SUBCUT PRN ×4 (06:07→23:00)
[2016-12-27 06:21] LABS: BASOPHILS % (AUTO) 0.1 % (0.2-1.0); HEMATOCRIT 42.3 % (36.0-47.0); HEMOGLOBIN 13.4 g/dL (12.0-16.0); LYMPHOCYTES # (AUTO) 0.8 X10^3/uL (1.3-2.9); LYMPHOCYTES % (AUTO) 9.4 % (21.0-51.0); MEAN CORPUSCULAR HGB CONC 31.8 g/dL (33.0-35.0); MEAN PLATELET VOLUME 8.7 fL (7.4-11.0); MONOCYTES # (AUTO) 0.3 x10^3/uL (0.3-0.8); MONOCYTES % (AUTO) 4.1 % (0.0-13.0); NEUTROPHILS # (AUTO) 7.2 x10^3/uL (2.2-4.8); NEUTROPHILS % (AUTO) 86.4 % (42.0-75.0); PLATELET COUNT 146 X10^3/uL (150.0-450.0); RED CELL DISTRIBUTION WIDTH 17.8 % (11.6-16.5); WHITE BLOOD COUNT 8.4 X10^3/uL (3.6-10.0)
[2016-12-27 06:34] LABS: ALANINE AMINOTRANSFERASE 26 Units/L (12-78); ALBUMIN 2.7 g/dL (3.4-5.0); ALKALINE PHOSPHATASE 87 Units/L (46-116); ASPARTATE AMINO TRANSFERASE 17 Units/L (15-37); BLOOD UREA NITROGEN 20 mg/dL (7-18); CARBON DIOXIDE 36.9 mmol/L (21-32); CHLORIDE 101 mmol/L (98-107); COR NA(FOR HYPERGLY) 143 mmol/L (136-145); CREATININE 0.66 mg/dL (0.55-1.02); SODIUM 140 mmol/L (136-145); TOTAL PROTEIN 6.2 g/dL (6.4-8.2); eGFR BLACK RACES > 60 (>60); eGFR NON BLACK RACES > 60 (>60)
[2016-12-27] MEDS ORDERED: ZESTRIL TAB 20 MG ONE (08:18)
--- NOTE | 2016-12-27 08:40 | RAD ---
Chest AP portable Indication: COPD and dyspnea. Comparison: December 25, 2016. Findings: There is cardiomegaly with pacemaker leads. AICD lead noted. There is no pneumothorax. Ther e is increased interstitial markings. Impression: Cardiomegaly and borderline edema suggesting CHF. Followup to resolution. Reported By:
[2016-12-27] MEDS: COREG TAB 25 MG PO SCH ×2 (09:14→21:18)
[2016-12-27] MEDS: GLUCOTROL PO SCH ×2 (09:14→21:18)
[2016-12-27] MEDS: SOLU-Medrol 40 MG VIAL IVP SCH ×2 (09:14→21:17)
[2016-12-27] MEDS: PROTONIX INJ 40 MG VIAL IVP SCH (09:14)
[2016-12-27] MEDS: NORCO 10/325 TAB PO PRN ×2 (09:14→21:18)
[2016-12-27] MEDS: METHOCARBAMOL PO PRN (09:14)
[2016-12-27] MEDS: ZESTRIL TAB 20 MG PO SCH (09:14)
[2016-12-27] MEDS: ESTRACE PO SCH (09:15)
[2016-12-27] MEDS: ZyrTEC TAB 10 MG PO SCH (09:15)
[2016-12-27] MEDS: MUCINEX EXPECTORANT PO SCH (09:15)
[2016-12-27] MEDS: PLAVIX PO SCH (09:17)
[2016-12-27] MEDS: PULMICORT NEB TX 0.5 MG NEB SCH ×2 (11:34→19:59)
[2016-12-27] MEDS: ZOSYN VIAL 3.375 GM 3.375 GM in NS 100 ML IV + SPIKE MINIBAG* 100 ML IV SCH ×3 (12:23→21:09)
--- NOTE | 2016-12-27 13:40 | PCM.PROG ---
Progress Note - Progress Note for Day of Date: 12/27/16 - Subjective Subjective: 66-year-old white female admitted on dec 24 with chest pain and shortness of breath. Patient currently being treated for COPD exacerbation as well as serial cardiac enzymes and EKGs. CXR this am revealed vascular congstion , CHF findings will given lasix IV bid, strict I & O's Discussed possible transfer for heart Catheterization if chest pain continues with treatment of respiratory illness. - Past Medical Family Social History Past Med/Fam/Surg Hx: No changes since H&P Allergies: Allergies Sulfa (Sulfonamide Antibiotics) [SULFA] Adverse Reaction (Verified 12/24/16 21: 50) - Review of Systems ROS: No change since H&P - Vital Signs and I&O's Vital Signs: Temperature 97.9 F Pulse Rate [Left Brachial] 67 Pulse Rate [Left Radial] 76 Pulse Rate 77 Respiratory Rate 20 Blood Pressure [Left Arm] 170/70 Blood Pressure 136/65 O2 Sat by Pulse Oximetry 95 Intake and Output: Intake & Output 12/25/16 12/26/16 12/27/16 12/28/16 11:59 11:59 11:59 11:59 Intake Total 60 1610 950 Output Total 225 Balance -165 1610 950 - Physical Exam Oriented: Normal Eyes: Normal Ear: Normal Nose: Normal Throat: Normal Respiratory: Diminished Cardiovascular: Edema, Other (pacer, defibrillator) Auscultation: Bowel Sounds: Normal Tenderness: Normal Skin: Decreased Turgur Musculoskeletal: Back:Lumbar Psychiatric: Anxiety Speech Pattern: Clear, Appropriate - Laboratory and Diagnostics Result Diagrams: 12/27/16 04:10 12/27/16 04:10 Labs: 12/25/16 11:41 Urine,Clean Catch Urine Culture - Final Enterococcus Faecalis Laboratory WBC 8.4 X10^3/uL (3.6-10.0) 12/27/16 04:10 RBC 4.80 X10^6/uL (3.5-5.4) 12/27/16 04:10 Hgb 13.4 g/dL (12.0-16.0) 12/27/16 04:10 Hct 42.3 % (36.0-47.0) 12/27/16 04:10 MCV 88.0 fL (80.0-100.0) 12/27/16 04:10 MCH 28.0 pg (27.0-34.0) 12/27/16 04:10 MCHC 31.8 g/dL (33.0-35.0) L 12/27/16 04:10 RDW 17.8 % (11.6-16.5) H 12/27/16 04:10 Plt Count 146 X10^3/uL (150.0-450.0) L 12/27/16 04:10 MPV 8.7 fL (7.4-11.0) 12/27/16 04:10 Neut % 86.4 % (42.0-75.0) H 12/27/16 04:10 Lymph % 9.4 % (21.0-51.0) L 12/27/16 04:10 [place] % 4.1 % (0.0-13.0) 12/27/16 04:10 Eos % 0.0 % (0.9-2.9) L 12/27/16 04:10 Baso % 0.1 % (0.2-1.0) L 12/27/16 04:10 Neut # 7.2 x10^3/uL (2.2-4.8) H 12/27/16 04:10 Lymph # 0.8 X10^3/uL (1.3-2.9) L 12/27/16 04:10 [place] # 0.3 x10^3/uL (0.3-0.8) 12/27/16 04:10 Eos # 0.0 x10^3/uL (0.0-0.2) 12/27/16 04:10 Baso # 0.0 X10^3/uL (0.0-0.1) 12/27/16 04:10 Absolute Nucleated RBC 0.1 /100WBC 12/27/16 04:10 Sodium 140 mmol/L (136-145) 12/27/16 04:10 Corrected Sodium 143 mmol/L (136-145) 12/27/16 04:10 Potassium 4.2 mmol/L (3.5-5.1) 12/27/16 04:10 Chloride 101 mmol/L (98-107) 12/27/16 04:10 Carbon Dioxide 36.9 mmol/L (21-32) H 12/27/16 04:10 BUN 20 mg/dL (7-18) H 12/27/16 04:10 Creatinine 0.66 mg/dL (0.55-1.02) 12/27/16 04:10 Est GFR (MDRD) Af Amer > 60 (>60) 12/27/16 04:10 Est GFR (MDRD) Non-Af > 60 (>60) 12/27/16 04:10 Glucose 225 mg/dL (65-99) H 12/27/16 04:10 POC Glucose (mg/dL) 343 mg/dL (65-99) H 12/27/16 12:39 Calcium 9.0 mg/dL (8.5-10.1) 12/27/16 04:10 Corrected Calcium 10.0 mg/dL (8.5-10.1) 12/27/16 04:10 Magnesium 1.7 mg/dL (1.7-2.9) 12/25/16 04:30 Total Bilirubin 0.20 mg/dL (0.2-1.0) 12/27/16 04:10 AST 17 Units/L (15-37) 12/27/16 04:10 ALT 26 Units/L (12-78) 12/27/16 04:10 Alkaline Phosphatase 87 Units/L (46-116) 12/27/16 04:10 Creatine Kinase 35 Units/L (26-192) 12/25/16 14:34 CK-MB (CK-2) < 1.0 ng/mL (0-4.0) 12/25/16 14:34 CK/CKMB % Calc 2.9 % (<4) 12/25/16 14:34 Troponin I 0.09 ng/mL (0-1.5) 12/25/16 14:34 Total Protein 6.2 g/dL (6.4-8.2) L 12/27/16 04:10 Albumin 2.7 g/dL (3.4-5.0) L 12/27/16 04:10 Globulin 3.5 g/dL (2.5-4.5) 12/27/16 04:10 Albumin/Globulin Ratio 0.8 Ratio (1.1-2.1) L 12/27/16 04:10 Triglycerides 156 mg/dL (0-150) H 12/25/16 04:30 Cholesterol 130 mg/dL (0-200) 12/25/16 04:30 LDL Cholesterol, Calc 60 mg/dL (0-100) 12/25/16 04:30 HDL Cholesterol 39 mg/dL (40-60) L 12/25/16 04:30 Cholesterol/HDL Ratio 3.3 (0.0-5.0) 12/25/16 04:30 Specimen Type Clean catch urine 12/25/16 11:41 Urine Color Dark yellow (YELLOW) 12/25/16 11:41 Urine Appearance Slightly hazy (CLEAR) 12/25/16 11:41 Urine pH 7.0 (5.0 - 8.0) 12/25/16 11:41 Ur Specific [place] 1.010 (1.000-1.030) 12/25/16 11:41 Urine Protein 3+ (NEGATIVE) 12/25/16 11:41 Urine Glucose (UA) 4+ (NEGATIVE) 12/25/16 11:41 Urine Ketones Negative (NEGATIVE) 12/25/16 11:41 Urine Occult Blood Negative (NEGATIVE) 12/25/16 11:41 Urine Nitrite Negative (NEGATIVE) 12/25/16 11:41 Urine Bilirubin Negative (NEGATIVE) 12/25/16 11:41 Urine Urobilinogen 1+ (NORMAL) 12/25/16 11:41 Ur Leukocyte Esterase 1+ (NEGATIVE) 12/25/16 11:41 Urine RBC 0-1 /HPF (NEGATIVE) 12/25/16 11:41 Urine WBC 2-5 /HPF (NEGATIVE) 12/25/16 11:41 Ur Squamous Epith Cells Few /HPF (NEGATIVE) 12/25/16 11:41 Urine Bacteria Trace /HPF (NEGATIVE) 12/25/16 11:41 Hyaline Casts Few /LPF (NEGATIVE) 12/25/16 11:41 Ur Culture Indicated? Yes/culture set up 12/25/16 11:41 - Plan (1) Acute bronchitis with COPD Status: Acute Plan: continued resp jet nebs, supplemental o2, iv steroids. iv atbx, sputum. cardiac monitoring, bp and lipid control. ssi for blood sugar control (2) Chest pain Status: Acute Plan: continue bp and lipid control. strict I & os (3) CHF (congestive heart failure) Status: Acute Plan: lasix, bb, lipid control. resp therapy (4) CAD (coronary artery disease) Status: Acute (5) Diabetes mellitus, type II Status: Chronic (6) GERD (gastroesophageal reflux disease) Status: Chronic
[2016-12-27] MEDS: LASIX IVP SCH ×2 (15:19→21:19)
[2016-12-27] MEDS: SNACK - Diabetic Appropriate PO SCH (21:08)
[2016-12-27] MEDS: ZITHROMAX INJ 500 MG VIAL 500 MG in NS 250 ML IV 250 ML IV SCH (21:09)
[2016-12-27] MEDS: ROCEPHIN VIAL 1 GM 1 GM in NS 50 ML IV 50 ML IV SCH (21:10)
[2016-12-27] MEDS: SINEquan PO SCH (21:17)
[2016-12-27] MEDS: XANAX PO SCH (21:18)
[2016-12-27] MEDS: ARICEPT TAB 5 MG PO SCH (21:18)
[2016-12-28] MEDS: DUONEB 0.5 MG/3 MG NEB SCH ×3 (01:18→05:21)
[2016-12-28] MEDS: NS 500 ML IV 500 ML IV SCH (02:48)
[2016-12-28 02:49] VITALS: BP 155/70
[2016-12-28 06:07] LABS: BASOPHILS % (AUTO) 0.1 % (0.2-1.0); HEMOGLOBIN 15.3 g/dL (12.0-16.0); LYMPHOCYTES # (AUTO) 0.9 X10^3/uL (1.3-2.9); LYMPHOCYTES % (AUTO) 11.8 % (21.0-51.0); MEAN CORPUSCULAR HGB CONC 32.5 g/dL (33.0-35.0); MEAN CORPUSCULAR VOLUME 86.4 fL (80.0-100.0); MEAN PLATELET VOLUME 8.8 fL (7.4-11.0); MONOCYTES # (AUTO) 0.5 x10^3/uL (0.3-0.8); MONOCYTES % (AUTO) 6.1 % (0.0-13.0); NEUTROPHILS # (AUTO) 6.3 x10^3/uL (2.2-4.8); PLATELET COUNT 155 X10^3/uL (150.0-450.0); RED BLOOD COUNT 5.44 X10^6/uL (3.5-5.4); RED CELL DISTRIBUTION WIDTH 17.7 % (11.6-16.5); WHITE BLOOD COUNT 7.7 X10^3/uL (3.6-10.0)
[2016-12-28] MEDS: ZOSYN VIAL 3.375 GM 3.375 GM in NS 100 ML IV + SPIKE MINIBAG* 100 ML IV SCH (06:08)
[2016-12-28] MEDS: NEURONTIN CAP 400 MG PO SCH (06:08)
[2016-12-28] MEDS: HumuLIN R SUBCUT PRN (06:17)
[2016-12-28 06:41] LABS: ALANINE AMINOTRANSFERASE 32 Units/L (12-78); ALBUMIN 3.1 g/dL (3.4-5.0); ALKALINE PHOSPHATASE 98 Units/L (46-116); ASPARTATE AMINO TRANSFERASE 24 Units/L (15-37); BLOOD UREA NITROGEN 24 mg/dL (7-18); CALCIUM 9.4 mg/dL (8.5-10.1); CHLORIDE 94 mmol/L (98-107); COR CA(FOR HYPOALB) 10.1 mg/dL (8.5-10.1); COR NA(FOR HYPERGLY) 142 mmol/L (136-145); CREATININE 0.84 mg/dL (0.55-1.02); SODIUM 139 mmol/L (136-145); eGFR BLACK RACES > 60 (>60); eGFR NON BLACK RACES > 60 (>60)
[2016-12-28 06:43] LABS: CARBON DIOXIDE 41.7 mmol/L (21-32)
[2016-12-28] MEDS ORDERED: MACROBID CAP 100 MG EXT REL PO SCH (09:00)
== END 2016-12-28 09:00 | disposition short-term general hospital (02) | DRG 202 ==
LOC: MED/SURG 20:45
PROVIDERS: ADMIT Internal Medicine; ATTEND Internal Medicine
DX: J20.8 Acute bronchitis due to other specified organisms (principal); J44.1 Chronic obstructive pulmonary disease with (acute) exacerbation; R07.89 Other chest pain; R06.02 Shortness of breath; M13.89 Other specified arthritis, multiple sites; K21.9 Gastro-esophageal reflux disease without esophagitis; I10 Essential (primary) hypertension; B95.2 Enterococcus as the cause of diseases classified elsewhere
CPT/HCPCS: 36415; 71010; 71020; 80053; 80061; 81001; 82550; 82553; 82947; 83735; 84484; 85025; 87086; 87088; 87186; 93005; 93010; 94640; 94760; A4222; C9113; J0456; J0696; J1815; J1940; J2543; J2920; J7620; J7626